=== PATIENT | male | born 2000 | race African-American/Black ===

== ENCOUNTER 2020-07-06 14:57 | Emergency (ER) | payer SELFPAY ==
[~2020-07-06] VITALS: Ht 182.9 cm; Wt 63.5 kg
[2020-07-06 15:00] VITALS: BP_SYST 156
[2020-07-06] MEDS ORDERED: BACITRACIN 1 GM OINT TP ONE ×2 (15:49→16:00)
[2020-07-06 15:56] VITALS: BP_SYST 156
== END 2020-07-06 15:56 ==
LOC: SED 14:57
DX: S91.342A Puncture wound with foreign body, left foot, initial encounter (principal); S50.812A Abrasion of left forearm, initial encounter; X99.0XXA Assault by sharp glass, initial encounter; Y93.89 Activity, other specified; Y92.89 Other specified places as the place of occurrence of the external cause; Y99.8 Other external cause status
CPT/HCPCS: 73090; 99284